=== PATIENT | female | born 1950 | race Caucasian/White ===

== ENCOUNTER 2021-11-17 08:26 | Outpatient (CLI) | payer MEDICARE, SELFPAY ==
[2021-11-17 08:59] LABS: Creatinine* 0.8 mg/dL (0.5-1.5); Estimated Glomerular Filt Rate 79 ml/min
--- NOTE | 2021-11-17 10:00 | CRLHL7_ITS ---
For Patients: As a result of the Century Cures Act, medical imaging exams and procedure reports are released immediately into your electronic medical record. You may view this report before your referring provider. If you have questions, please contact your health care provider. Indication: TRIPLE NEGATIVE BREAST CANCER, NOW HAVE WORSENING SOB Technique: Post contrast CT chest. 75 cc Isovue 370 intravenous contrast. Please note that all CT scans at this facility use dose modulation, iterative reconstruction, and/or weight-based dosing when appropriate to reduce radiation dose to as low as reasonably achievable. Comparison: CT-PET 04/01/2020 Findings: Postoperative changes right breast lumpectomy and radiation therapy. Reticular densities within the anterolateral right upper lobe. No pulmonary nodule. Atelectasis within the medial lung bases. No pleural effusion or pulmonary edema. No pneumothorax. No mediastinal, hilar or axillary adenopathy. No intrinsic osseous lesion or fracture. Stable coarse calcifications within the dome of the liver considered benign. Hiatal hernia measuring 6.2 cm. No aortic dissection. The ascending aorta is mildly prominent measuring 4.5 x 4.0 cm. Adrenal glands normal. Incidental calcification within the left breast. Impression: Status post right breast lumpectomy and radiation therapy with mild radiation pneumonitis in the anterolateral right lung. No pulmonary mass or evidence of metastatic disease. No pulmonary infiltrate or CHF. No effusion. No fibrosis. 6.2 cm hiatal hernia. Enlargement of the ascending aorta measuring 4.5 x 4.0 cm. Please note that all CT scans at this facility use dose modulation, iterative reconstruction, and/or weight-based dosing when appropriate to reduce radiation dose to as low as reasonably achievable. Dictated by Joaquin Alvarado MD @ 11/17/2021 10:26:28 AM (Electronically Signed)
== END 2021-11-17 08:27 | disposition home or self-care (01) ==
LOC: CT 08:26
PROVIDERS: PCP Family Medicine; Visit Provider Internal Medicine Hematology & Oncology
DX: R06.09 Other forms of dyspnea (principal); J18.9 Pneumonia, unspecified organism; K44.9 Diaphragmatic hernia without obstruction or gangrene; I51.7 Cardiomegaly; C50.919 Malignant neoplasm of unspecified site of unspecified female breast
CPT/HCPCS: 36415; 71260; 82565; Q9967

== ENCOUNTER 2021-11-22 10:52 | Outpatient (RCR) | payer MEDICARE, SELFPAY ==
--- NOTE | 2021-11-22 12:06 | OT.OPLDN ---
OT Outpatient Lymphedema Daily Note OT Outpatient Lymphedema Daily Note Start: 11/15/21 11:37 Freq: Status: Active Protocol: Document 11/22/21 11:37 AMB (Rec: 11/22/21 12:05 AMB [id number]) E-signed By Amanda Hess, OTR/L, CLT, ICT SALES REPRESENTATIVE OT OP Lymphedema Daily/Progress Note Note Type Note Type Daily,Discharge Note Visit Number 6 Comments This chart is continued from the old [employer] documentation system, please refer back for specifics and previous visits. Insurance Information Insurance Information Medicare B Current Condition/Medical Diagnosis Referring Provider Dr Doe Treatment Diagnosis At Risk for lymphedema, breast cancer Date Of Onset 10/22/20 Subjective Subjective Pt states she feels the best she has felt in a long time. Pt has been consistently exercising, states the scale doesn't show it, but she has more energy and just feels good. Home Program Compliant To Home Program Yes Home Program Specifics Self monitoring and consistent exercise Circumferential Measurements Upper Extremity Left Upper Extremity MCP 20.2 Palm 21.7 Wrist 17.3 10cm 23.7 20cm 28.2 30cm 33.4 40cm 40.5 Total 185.0 Right Upper Extremity MCP 20.5 Palm 20.9 Wrist 17.0 10cm 23.0 20cm 28.0 30cm 33.0 40cm 40.0 Total 182.4 Treatment Self Care Provided review of patient education regarding the lymphatic system, s/s of lymphedema, treatment options for lymphedema, implications of untreated lymphedema, infection and it's correlation to lymphedema as well as implications of untreated infection. Discussed continued risk reduction practices including skin care and monitoring strategies. Discussed the importance of regular exercise and healthy habits. Reminded pt that these precautions would need to be considered from now on and that she will always be at risk. Discussed importance of self monitoring and reporting any concerns or changes to her PCP sooner than later. Pt verbalizes that she understands and will continue to monitor. Self Care Activity Minutes (minutes) 20 Therapeutic Activity Minutes (minutes) 7 Other Interventions Re-assessment of BUE limb circumference and comparison. See above. Assessment Pt presents 1 year and 1 month post lumpectomy with SLNB x 4 on right side. Pt is feeling really good, denies any s/s of or concers from lymphedema. Pt has been consistently exercising and increasing her activity level. Measurements do not pose concern for lymphedema. Today's sessions concludes her 12 month lymphedema survaillance program. Pt feels she has the education and the tools to continue with self monitoring. Pt understands the importance of reporting concerns to her PCP if needed. Pt also has writers contact info and was encouraged to reach out if she has concerns. Patient Goals Patient Goals GOALS/Functional Outcomes 1. Pt will demonstrate a general understanding of the lymphatic system, s/s of lymphedema, treatment of lymphedema, implications of untreated lymphedema, s/s of infection and the correlation of infection related to lymphedema. 3 months Goal is met 2. Pt will be compliant with quarterly assessments for lymphedema surveillance in order to obtain early intervention with best outcomes ifneeded. 12 months Goal is met Treatment Plan Treatment Plan Evaluation,Edema Control, Manual Therapy,Wound Care/Scar Management,Therapeutic Exercise,Therapeutic Activities,Self-Care/Home Management,Education Expected Frequency Comments eval followed by 1 visit every 3 months for 1 year post surgery. Expected Duration 12 months Daily Plan of Care Discharge Treatment Minutes Timed Treatment Minutes 20 Total Timed Treatment Minutes 20 Occupational Therapy Billing Units Billing Units Self Care/Home Management 1 Recertification Information Recertification Information Initial Certification Date 10/20/20 Recertification Start Date 10/19/21 Recertification Due Date 01/18/22 Reasons to Continue Skilled Therapy Pt had one visit left to complete the lymphedema surveillance program as part of her breast cancer follow up . Rehabilitation Potential Good Continued Plan of Care and Interventions Discontinue OT at this time, goals have been met, pt has finished her surveillance program without any current conserns for lymphedema. Provider Signature Shows Agreement With POC & Medical Necessity Physician Comment/Change Comment or Changes Physician NPI Number # Discharge Note Discharge Note Discharge Summary Pt has been seen for a total of 6 visits in OT with focus being on lymphedema surveillance and pt education. Pt has been feeling really good and has not exhibited any s/s of lymphedema throughout this first post-op year. Pt verbalizes understanding of lymphatics, lymphedema, infection correlation, and self monitoring. Pt feels ready to discharge to independent monitoring. Date of First Visit for Therapy 10/20/20 Date of Last Visit for Therapy 11/22/21 Interventions Provided During Treatment Joint Mobilization,Manual Therapy,Therapeutic Activities ,Therapeutic Exercise,Self Care/Home Management Recommendations/Reason for Discharge Met All Therapy Goals Discharge Instructions Continue with execise / movement / healthy lifestyle / risk reduction practices and self monitoring.
== END 2022-09-28 23:59 | disposition home or self-care (01) ==
PROVIDERS: PCP Family Medicine; Visit Provider Surgery
DX: I89.0 Lymphedema, not elsewhere classified (principal); Z51.89 Encounter for other specified aftercare
CPT/HCPCS: 97535

== ENCOUNTER 2022-01-17 11:14 | Outpatient (CLI) | payer MEDICARE, SELFPAY ==
--- NOTE | 2022-01-17 11:30 | CRLHL7_ITS ---
For Patients: As a result of the Cures Act, medical imaging exams and procedure reports are released immediately into your electronic medical record. You may view this report before your referring provider. If you have questions, please contact your health care provider. BILATERAL SCREENING MAMMOGRAM WITH COMPUTER-AIDED DETECTION AND TOMOSYNTHESIS TECHNIQUE: CC and MLO views were obtained. These mammographic images have been obtained using full-field digital technique. These mammographic images were interpreted with the benefit of computer-aided detection. Breast Tomosynthesis was used in this interpretation. COMPARISON FILM: Diagnostic studies: 10/21/20, 03/24/20, 03/15/20. FINDINGS: There are scattered areas of fibroglandular density IMPRESSION: There is no radiographic evidence for malignancy. ASSESSMENT: BI-RADS Category 2: Benign RECOMMENDATION: Routine screening mammogram in 1 year. A lay language report of this examination will be provided to the patient. Wes Rasheed M.D. Diagnostic/Nuclear Medicine Radiologist [email or web address] Transcribed: 3:23 p.m. NAOMIE/Dictated by: Wes Rasheed MD @ 01/17/2022 12:23:00 PM (Electronically Signed)
== END 2022-01-17 11:15 | disposition home or self-care (01) ==
PROVIDERS: PCP Family Medicine; Visit Provider Internal Medicine Hematology & Oncology
DX: Z12.31 Encounter for screening mammogram for malignant neoplasm of breast (principal)
CPT/HCPCS: 77063; 77067

== ENCOUNTER 2022-02-09 12:45 | Outpatient (RCR) | payer MEDICARE, SELFPAY | END 2022-05-09 23:59 | disposition home or self-care (01) | LOC: CCIC 12:45 | PROVIDERS: PCP Family Medicine; Visit Provider Nurse Practitioner Family | DX: C50.919 Malignant neoplasm of unspecified site of unspecified female breast (principal) | CPT/HCPCS: 99212; 99213; 99214 ==

== ENCOUNTER 2022-05-09 09:11 | Outpatient (CLI) | payer MEDICARE, SELFPAY ==
[2022-05-09 11:53] LABS: Albumin* 4.1 g/dL (3.3-5.0); Chloride* 105 mmol/L (96-114); Potassium* 4.6 mmol/L (3.6-5.1); Sodium* 139 mmol/L (135-149)
[2022-05-09 11:55] LABS: Cholesterol* 214 mg/dL (90-199); Creatinine* 0.7 mg/dL (0.5-1.5); Estimated Glomerular Filt Rate 92 ml/min
[2022-05-09 11:56] LABS: Alanine Aminotransferase* 16 U/L (4-35); Alkaline Phosphatase* 52 U/L (40-150); Aspartate Amino Transferase* 22 U/L (12-35); Bilirubin Total* 0.7 mg/dL (0.1-1.5); Blood Urea Nitrogen* 13 mg/dL (7-30); Calcium* 8.7 mg/dL (8.4-10.6); Carbon Dioxide* 29 mmol/L (20-32); Glucose* 96 mg/dL (60-115); Triglycerides* 154 mg/dL (40-149)
[2022-05-09 11:57] LABS: HDL Cholesterol* 43 mg/dL (>=50); LDL Cholesterol Calculated 140 mg/dL (<100)
[2022-05-09 12:27] LABS: Ferritin* 8.5 ng/mL (11.1-264.0)
== END 2022-05-09 09:12 | disposition home or self-care (01) ==
LOC: NFLDREF 09:11
PROVIDERS: PCP Family Medicine; Visit Provider Family Medicine
DX: Z00.00 Encounter for general adult medical examination without abnormal findings (principal); D64.9 Anemia, unspecified; E78.5 Hyperlipidemia, unspecified; E66.01 Morbid (severe) obesity due to excess calories
CPT/HCPCS: 80053; 80061; 82728; 84443

== ENCOUNTER 2022-06-01 10:26 | Outpatient (CLI) | payer MEDICARE, SELFPAY | END 2022-06-01 10:27 | disposition home or self-care (01) | LOC: OP CLINIC 10:29 | PROVIDERS: PCP Family Medicine; Visit Provider Surgery | DX: Z12.11 Encounter for screening for malignant neoplasm of colon (principal); K63.5 Polyp of colon; K57.30 Diverticulosis of large intestine without perforation or abscess without bleeding | CPT/HCPCS: 45385; 88305; J1200; J2250; J3010 ==

== ENCOUNTER 2022-10-05 14:11 | Outpatient (RCR) | payer MEDICARE, SELFPAY | END 2022-11-29 23:59 | disposition home or self-care (01) | LOC: CCIC 14:11 | PROVIDERS: PCP Family Medicine; Visit Provider Internal Medicine Hematology & Oncology | DX: C50.911 Malignant neoplasm of unspecified site of right female breast (principal); Z17.0 Estrogen receptor positive status [ER+] | CPT/HCPCS: 99212; 99213; 99214 ==

== ENCOUNTER 2023-03-19 13:46 | Outpatient (CLI) | payer MEDICARE, SELFPAY ==
--- NOTE | 2023-03-19 14:00 | CRLHL7_ITS ---
For Patients: As a result of the Century Cures Act, medical imaging exams and procedure reports are released immediately into your electronic medical record. You may view this report before your referring provider. If you have questions, please contact your health care provider. BILATERAL SCREENING MAMMOGRAM WITH COMPUTER-AIDED DETECTION AND TOMOSYNTHESIS TECHNIQUE: CC and MLO views were obtained. These mammographic images have been obtained using full-field digital technique. These mammographic images were interpreted with the benefit of computer-aided detection. Breast Tomosynthesis was used in this interpretation. COMPARISON FILM: 01/17/22, 03/15/20. FINDINGS: There are scattered areas of fibroglandular density IMPRESSION: There is no radiographic evidence for malignancy. ASSESSMENT: BI-RADS Category 2: Benign RECOMMENDATION: Routine screening mammogram in 1 year. A lay language report of this examination will be provided to the patient. Wes Rasheed M.D. Diagnostic/Nuclear Medicine Radiologist [email or web address] NAOMIE/Dictated by: Wes Rasheed MD @ 03/20/2023 9:03:00 AM (Electronically Signed)
== END 2023-03-19 13:47 | disposition home or self-care (01) ==
LOC: MAMMO 13:47
PROVIDERS: PCP Family Medicine; Visit Provider Family Medicine
DX: Z12.31 Encounter for screening mammogram for malignant neoplasm of breast (principal)
CPT/HCPCS: 77063; 77067

== ENCOUNTER 2023-05-14 07:32 | Outpatient (CLI) | payer MEDICARE, SELFPAY | END 2023-05-14 07:33 | disposition home or self-care (01) | LOC: NFLDREF 05-24 14:55 | PROVIDERS: PCP Family Medicine; Referring Provider Family Medicine; Visit Provider Family Medicine | DX: Z86.2 Personal history of diseases of the blood and blood-forming organs and certain disorders involving the immune mechanism (principal); R53.83 Other fatigue; E78.5 Hyperlipidemia, unspecified; E66.01 Morbid (severe) obesity due to excess calories | CPT/HCPCS: 80053; 80061; 82306 ==

== ENCOUNTER 2023-09-06 10:30 | Outpatient (RCR) | payer MEDICARE, SELFPAY | END 2023-09-25 23:59 | disposition home or self-care (01) | LOC: CCIC 10:30 | PROVIDERS: PCP Family Medicine; Visit Provider Physician Assistant | DX: C50.911 Malignant neoplasm of unspecified site of right female breast (principal); Z17.1 Estrogen receptor negative status [ER-]; C77.3 Secondary and unspecified malignant neoplasm of axilla and upper limb lymph nodes; R53.83 Other fatigue | CPT/HCPCS: 99213; 99214; G0463 ==

== ENCOUNTER 2024-01-01 08:17 | Outpatient (CLI) | payer MEDICARE, SELFPAY ==
--- OUTSIDE RECORDS SUMMARY | 2024-01-03 11:17 | XMS_ITS | Clinical Summary ---
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 Name Role Phone Nivia Rose MD Primary Care Provider Unav ailable Allergies No known active allergies Medications No known medications Immunizations Name Administration Dates Next Due Tdap 12/29/2013 Family History Medical History Relation Name Comments Cancer Father lung - smoked Cancer Mother lung - smoked Relation Name Status Comments Father Mother Social History Tobacco Use Types Packs/Day Years Used Date Smoking Tobacco: Never Tobacco Cessation:Counseling Given: Yes Alcohol Use Standard Drinks/Week Comments No 0 (1 standard drink = 0.6 oz pur e alcohol) Sex and Gender Information Value Date Recorded Sex Assigned at Not on file Gender Identity Not on file Sexual Orientation Not on file Obstetrics History Last Filed Vital Signs Vital Sign Reading Time Taken Comments Blood Pressure 130/62 01/23/2014 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 Pulse 80 01/23/2014 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 Temperature 36.4 ??C (97.6 ??F) 01/23/2014 10:[address] Respiratory Rate - - Oxygen Saturation 98% 01/05/2014 3:02 PM CDT Inhaled Oxygen Concentration - - Weight 108 kg (238 lb) 01/23/2014 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 Height - - Body Mass Index - - Plan of Treatment Health Maintenance Due Date Last Done Comments Depression screening for age 12+ 1962 BMI (ht and wt on same day) for age 18+ 1968 Hepatitis C screening for age 18-79 1968 Colonoscopy through age 75 10/28/1995 Lipids for age 45-75 10/28/1995 Mammogram for age 45-75 10/28/1995 Zoster (shingles) series for age 50+ (1 of 2) 10/28/19 DEXA/DXA scan for age 65+ 10/28/2015 Medicare Wellness for age 65+ 10/28/2015 Pneumococcal series for age 65+ (1 of 1 - PCV) 016 COVID-19 vaccine series ( - 2023- season) Influenza for age 65+ 11/11/2023 Tetanus booster 12/30/2023 12/29/2013 Tdap Completed 12/29/2013 Care Teams Tying Machine Operator Relationship Specialty Start Date End Date Nivia Rose MD PCP - General Family Practice 12/26/13
== END 2024-01-01 08:18 | disposition home or self-care (01) ==
LOC: NFLDREF 01-03 11:16
PROVIDERS: PCP Family Medicine; Referring Provider Family Medicine; Visit Provider Family Medicine
DX: E78.5 Hyperlipidemia, unspecified (principal); M81.0 Age-related osteoporosis without current pathological fracture
CPT/HCPCS: 80061; 82306

== ENCOUNTER 2024-04-15 14:29 | Outpatient (CLI) | payer MEDICARE, SELFPAY ==
--- NOTE | 2024-04-15 14:40 | CRLHL7_ITS ---
For Patients: As a result of the Cures Act, medical imaging exams and procedure reports are released immediately into your electronic medical record. You may view this report before your referring provider. If you have questions, please contact your health care provider. BILATERAL SCREENING MAMMOGRAM WITH COMPUTER-AIDED DETECTION AND TOMOSYNTHESIS TECHNIQUE: CC and MLO views were obtained. These mammographic images have been obtained using full-field digital technique. These mammographic images were interpreted with the benefit of computer-aided detection. Breast Tomosynthesis was used in this interpretation. COMPARISON FILM: 03/19/23, 01/17/22, 03/15/20. FINDINGS: There are scattered areas of fibroglandular density IMPRESSION: There is no radiographic evidence for malignancy. ASSESSMENT: BI-RADS Category 2: Benign RECOMMENDATION: Routine screening mammogram in 1 year. A lay language report of this examination will be provided to the patient. Joaquin Alvarado M.D. Diagnostic Radiologist [email or web address] Transcribed: 2:54 p.mAlessandra pavon/Dictated by: Joaquin Alvarado MD @ 04/16/2024 9:27:00 AM (Electronically Signed)
== END 2024-04-15 14:30 | disposition home or self-care (01) ==
LOC: MAMMO 14:29
PROVIDERS: PCP Family Medicine; Visit Provider Physician Assistant
DX: Z12.31 Encounter for screening mammogram for malignant neoplasm of breast (principal)
CPT/HCPCS: 77063; 77067

== ENCOUNTER 2024-05-08 07:38 | Outpatient (CLI) | payer MEDICARE, SELFPAY | END 2024-05-08 07:39 | disposition home or self-care (01) | LOC: NFLDREF 05-09 09:29 | PROVIDERS: PCP Family Medicine; Referring Provider Family Medicine; Visit Provider Family Medicine | DX: E55.9 Vitamin D deficiency, unspecified (principal); E78.5 Hyperlipidemia, unspecified; E53.8 Deficiency of other specified B group vitamins; D64.9 Anemia, unspecified; M81.0 Age-related osteoporosis without current pathological fracture | CPT/HCPCS: 80053; 80061; 82306; 82607 ==

== ENCOUNTER 2024-05-19 10:30 | Outpatient (CLI) | payer MEDICARE, SELFPAY | END 2024-05-19 10:31 | disposition home or self-care (01) | LOC: MAMMO 10:31 | PROVIDERS: PCP Family Medicine; Visit Provider Family Medicine | DX: N64.1 Fat necrosis of breast (principal); C50.411 Malignant neoplasm of upper-outer quadrant of right female breast; C77.3 Secondary and unspecified malignant neoplasm of axilla and upper limb lymph nodes; Z17.1 Estrogen receptor negative status [ER-] | CPT/HCPCS: 76642; 77065; G0279 ==

== ENCOUNTER 2024-10-13 14:00 | Outpatient (RCR) | payer MEDICARE, SELFPAY | END 2024-10-18 23:59 | disposition home or self-care (01) | LOC: CCIC 14:00 | PROVIDERS: PCP Family Medicine; Visit Provider Internal Medicine Hematology & Oncology | DX: C50.911 Malignant neoplasm of unspecified site of right female breast (principal); Z17.1 Estrogen receptor negative status [ER-] | CPT/HCPCS: 99213; 99214; G0463 ==